=== PATIENT | male | born 1960 | race Caucasian/White ===

== ENCOUNTER → 2020-10-24 | Outpatient (CLI) | payer OTHER ==
[~2020-10-24] MED LIST: ALPR.5T PO; ANTI-INFLAMMATORY PO; CINN500C2 PO; CLC600T PO; CYCL10TA9 PO; DCS100C PO; DICL75TA2 PO; ENAL10TA PO; HCT25T PO; HYDR-34 PO; HYDR-3456 PO; HYDR-3583 PO; LOSA50TA63 PO; OMEG1CAP58 PO; PNT40TEC PO; POTA10TA36 PO; POTA99TA21 PO; TURM500C7 PO; UBID100C17 PO
--- NOTE | 2020-10-24 14:20 | Diagnostic Imaging Report ---
PROCEDURE: CT head without contrast. TECHNIQUE: Multiple contiguous axial images were obtained through the brain without the use of intravenous contrast. Auto Exposure Controls were utilized during the CT exam to meet ALARA standards for radiation dose reduction. INDICATION: Headache, sinus pressure, dizziness. COMPARISON: No relevant comparison. FINDINGS: The brain appeared normal. There is no hemorrhage, hydrocephalus, edema, mass, mass effect, or evidence for elevation of the intracranial pressures. The basilar cisterns are patent. There is no sulcal effacement. No mass or mass effect. No abnormal extra-axial fluid collection. Orbits, calvarium, mastoids, and visualized paranasal sinuses are nonacute. IMPRESSION: Unremarkable CT head. Dictated by: Dictated on workstation # [id number]
--- NOTE | 2020-10-24 14:21 | Diagnostic Imaging Report ---
PROCEDURE: CT sinuses without contrast TECHNIQUE: Multiple contiguous axial images were obtained through the sinuses without the use of intravenous contrast. Coronal and sagittal reformations were then performed. Auto Exposure Controls were utilized during the CT exam to meet ALARA standards for radiation dose reduction. INDICATION: Head pressure, dizziness. FINDINGS: There is very minimal 2 mm rightward directed nasal septal spurring without substantial deviation. The nasal bones are intact. The maxillary sinuses are clear. The maxillary sinus ostia patent. Ostiomeatal units and infundibulum appeared unremarkable. The ethmoid air cells are clear and well expanded. The sphenoid sinuses are clear. The frontal sinuses are clear. The orbital contents are unremarkable. There is no mastoid effusion. The external auditory canals and middle ear cavities appeared normal. IMPRESSION: Normal CT sinuses. Dictated by: Dictated on workstation # [id number]
== END ==
LOC: RAD 13:15
PROVIDERS: ATTEND Physician Assistant
DX: J01.41 Acute recurrent pansinusitis (principal); R42 Dizziness and giddiness; R53.1 Weakness
CPT/HCPCS: 70450; 70486

== ENCOUNTER → 2021-07-18 | Outpatient (CLI) | payer OTHER ==
[~2021-07-18] MED LIST changes: +CALC600T91 PO; -CLC600T PO
== END ==
LOC: CARD 09:00
PROVIDERS: ATTEND Internal Medicine Cardiovascular Disease
DX: I51.7 Cardiomegaly (principal); Z86.16 Personal history of COVID-19
CPT/HCPCS: 93306

== ENCOUNTER → 2021-07-29 | Outpatient (CLI) | payer OTHER ==
[~2021-07-29] MED LIST changes: +CATHETER FLUSH 10 ML SYR IV PRN; +REGADENOSON 0.4 MG/5 ML SYR (LEXISCAN) IV ONE
[2021-07-29 09:00] VITALS: BP 181/103
[2021-07-29 09:12] VITALS: BP 191/107
[2021-07-29 09:14] VITALS: BP 187/107
--- NOTE | 2021-07-29 17:37 | STRESS TEST ---
DATE OF SERVICE: 07/29/2021 RESTING AND POST REGADENOSON TECHNETIUM-99M TETROFOSMIN SPECT CT IMAGING Baseline images were carried out after injection of 10.71 mCi of technetium-99m Tetrofosmin. This was followed by 0.4 mg Regadenoson and 32.4 mCi of technetium-99 Tetrofosmin for stress imaging. The electrocardiogram showed a sinus rhythm at baseline. There was nonspecific ST and T-wave abnormality in the lateral leads. The electrocardiogram did not change significantly with the Regadenoson infusion. Review of images at rest and following stress indicates a small basal inferolateral perfusion defect that appears transient. Gated images show a normal global left ventricular systolic function with normal regional wall motion. Left ventricular ejection fraction is calculated to be 74%. Left ventricular end diastolic volume is 77 mL. TID is absent (1.16). CONCLUSIONS: 1. This study is indicative of a small amount of basal inferolateral ischemia. 2. Normal regional wall motion. 3. Normal global left ventricular systolic function with a calculated ejection fraction of 74%. Job ID: [id number] DocumentID: [id number] Dictated Date: 07/29/2021 14:54:49 [employer] Date: 07/29/2021 17:36:50 Dictated By: CHAYA LARA MD, MA, FACP, FACC,
== END ==
LOC: CARD 07:55
PROVIDERS: ATTEND Nurse Practitioner Family
DX: R07.89 Other chest pain (principal)
CPT/HCPCS: 78452; 93017; A9502

== ENCOUNTER 2021-08-19 08:52 | Day surgery (SDC) | payer OTHER ==
[~2021-08-19] VITALS: Ht 185 cm; Wt 135.0 kg
[2021-08-19] VITALS (16 sets, daily range): BP systolic 153–208; BP diastolic 81–114
[~2021-08-19 08:52] MED LIST changes: -CATHETER FLUSH 10 ML SYR IV PRN; -REGADENOSON 0.4 MG/5 ML SYR (LEXISCAN) IV ONE
[2021-08-19] MEDS ORDERED: NS IV 1000 ML 1,000 ML ONE (09:05)
[2021-08-19] MEDS ORDERED: HEParin (CATH LAB) 2,000 ML IV ONE (09:05)
[2021-08-19] MEDS ORDERED: LIDOCAINE 1% INJ 20 ML 20 ML VIAL ONE ×2 (09:05→12:00)
[2021-08-19] MEDS: NS IV 1000 ML 1,000 ML IV SCH ×3 (09:36→23:36)
[2021-08-19 09:39] LABS: HEMATOCRIT 43 % (40-54); HEMOGLOBIN 15.1 g/dL (13.3-17.7); MEAN CORPUSCULAR HEMOGLOBIN 30 pg (25-34); MEAN CORPUSCULAR HGB CONC 35 g/dL (32-36); MEAN CORPUSCULAR VOLUME 86 fL (80-99); MEAN PLATELET VOLUME 9.1 fL (9.0-12.2); PLATELET COUNT 250 10^3/uL (130-400); WHITE BLOOD COUNT 9.3 10^3/uL (4.3-11.0)
[2021-08-19 09:47] LABS: PROTHROMBIN TIME PATIENT 13.8 SEC (12.2-14.7)
[2021-08-19 09:55] LABS: ALBUMIN 3.9 GM/DL (3.2-4.5); BILIRUBIN,TOTAL 0.6 MG/DL (0.1-1.0); CALCIUM 9.1 MG/DL (8.5-10.1); CREATININE SERUM 0.92 MG/DL (0.60-1.30); POTASSIUM 3.9 MMOL/L (3.6-5.0); TOTAL PROTEIN 6.8 GM/DL (6.4-8.2)
[2021-08-19] MEDS ORDERED: METO50TA7 PO (10:23)
[2021-08-19] MEDS ORDERED: ASPI-999 PO (10:23)
[2021-08-19] MEDS ORDERED: ASCO500C17 PO (10:23)
[2021-08-19] MEDS ORDERED: ZINC50TA11 PO (10:23)
[2021-08-19] MEDS ORDERED: VITA-246 PO (10:23)
[2021-08-19] MEDS ORDERED: CYCL10TA9 PO (10:23)
[2021-08-19] MEDS ORDERED: LOSA50TA63 PO (10:23)
[2021-08-19] MEDS ORDERED: FEXO-46 PO (10:23)
[2021-08-19] MEDS ORDERED: METF-478 PO (10:23)
[2021-08-19] MEDS ORDERED: ALPR0.5T7 PO (10:23)
[2021-08-19] MEDS ORDERED: MULT-1136 PO (10:23)
[2021-08-19] MEDS ORDERED: RT-ALBUINH IH (10:23)
[2021-08-19] MEDS ORDERED: ACHD5005 PO (10:23)
[2021-08-19] MEDS ORDERED: MIDAZOLAM 5 MG/5 ML (VERSED) VIAL ONE ×2 (10:53→12:00)
[2021-08-19] MEDS ORDERED: fentaNYL INJ 100 MCG/2 ML AMP ONE ×2 (10:53→12:00)
[2021-08-19] MEDS ORDERED: HEParin 1000 UNIT/ML (10ML VIAL) FOR BOLUS ONE (12:01)
[2021-08-19] MEDS ORDERED: EPTIFIBATIDE BOLUS 20 ML IV ONE (12:03)
[2021-08-19] MEDS ORDERED: ASPIRIN 81 MG CHEW (CHILDREN'S ASA) ONE (12:36)
[2021-08-19] MEDS ORDERED: CLOPIDOGREL 300 MG (PLAVIX) TABLET PO ONE (12:36)
[2021-08-19] MEDS ORDERED: meTOproloL SUCCINATE 50 MG (TOPROL XL) TAB PO SCH (14:00)
[2021-08-19] MEDS ORDERED: ALPRAZolam 0.5 MG (XANAX) TAB PO PRN (14:15)
[2021-08-19] MEDS ORDERED: RT-ALBUTEROL SULF 2.5 MG/3 ML PRE-MIX VIAL IH PRN (14:15)
[2021-08-19] MEDS ORDERED: PATIENT MAY USE OWN MEDS, ALL PO SCH (14:15)
[2021-08-19] MEDS ORDERED: RX-CYCLOBENZAPRINE 10 MG (FLEXERIL) TAB PPK#3 PO PRN (14:15)
[2021-08-19] MEDS ORDERED: ACETAMINOPHEN 325 MG TABLET PO PRN (14:15)
--- NOTE | 2021-08-19 15:09 | CARDIAC CATHETERIZATION ---
DATE OF SERVICE: 08/19/2021 HEART CATHETERIZATION AND CORONARY INTERVENTION REPORT INDICATION FOR PROCEDURE The patient is a 60-year-old gentleman, who has multiple coronary artery disease risk factors and who has recently had an abnormal myocardial perfusion imaging study that indicated inferolateral ischemia. Accordingly, cardiac catheterization was carried out after having obtained an informed consent for cardiac catheterization and possible ad hoc coronary intervention. DESCRIPTION OF PROCEDURE: He was brought to the cardiac catheterization laboratory in a fasting state. Right groin was prepared and draped in the usual sterile fashion. Lidocaine 1% was used for local anesthesia. Modified Seldinger technique was used to advance a 5-Malawian sheath in the left femoral artery, 5-Malawian JL4 catheter was used for left coronary angiography. A 5-Malawian JR4 catheter was used for right coronary angiography, 5-Malawian pigtail catheter was used for left heart catheterization and left ventricular angiography. Subsequently, percutaneous intervention was carried out to the left circumflex artery and is described below. PERCUTANEOUS INTERVENTION TO THE LEFT CIRCUMFLEX ARTERY: We exchanged the sheath over a wire for a 6-Malawian sheath. We used a 6-Malawian JL4 guide catheter to engage the left coronary artery. We used a BMW wire to cross the lesion in the left circumflex artery and the tip was placed in the distal vessel. We then advanced a Machelle 2.5 x 12 mm stent to the lesion. This was carefully positioned to cover the lesion and the stent was deployed at 18 atmospheres. The stent extends across a small obtuse marginal branch, which remained intact and uncompromised. Following stent deployment, there was no significant residual stenosis in the left circumflex artery. The patient tolerated the procedure well. The angioplasty equipment was removed. Sheath was sutured in place for manual sheath removal on the floor. HEMODYNAMICS: Left ventricular end-diastolic pressure following coronary angiography was 11 mmHg. There was no significant pressure gradient on pullback across the aortic valve. Ascending aortic pressure was 130/80 with a mean of 70 mmHg. CORONARY ANGIOGRAPHY: Mild to moderate proximal coronary calcification is seen. Left main coronary artery does not exhibit significant disease. Left anterior descending artery has mild plaques. Left circumflex artery is codominant with the right coronary artery and has an 80% stenosis in its distal portion to which successful stenting was carried out and following deployment of 2.5 x 12 mm stent, there was no significant residual stenosis. The right coronary artery is codominant. It has mild plaque. LEFT VENTRICULAR ANGIOGRAPHY: Left ventricular angiography was carried out in the right anterior oblique projection. Global left ventricular systolic function is normal. Left ventricular ejection fraction is approximately 65%. CONCLUSIONS: 1. Coronary artery disease primarily consisting of an 80% distal stenosis in the left circumflex to which successful stenting was carried out with Machelle 2.5 x 12 mm stent with no significant residual stenosis. The rest of the coronary vessels have mild plaques. 2. Normal left ventricular end-diastolic pressure. 3. Normal global left ventricular systolic function with an ejection fraction of approximately 65%. DISCUSSION AND RECOMMENDATIONS: Dual antiplatelet therapy has been initiated. Beta rambo therapy is being continued. Statin therapy will be administered, if tolerated. He remains hospitalized for observation after this interventional procedure. Job ID: [id number] DocumentID: [id number] Dictated Date: 08/19/2021 12:38:17 Leaflet Distributor Date: 08/19/2021 15:09:02 Dictated By: CHAYA LARA MD, MA, FACP, FACC,
[2021-08-19] MEDS ORDERED: CYCLOBENZAPRINE 10 MG (FLEXERIL) TAB PO PRN (15:15)
[2021-08-19] MEDS ORDERED: LOSARTAN 50 MG (COZAAR) TAB PO SCH (18:00)
[2021-08-19] MEDS: HYDROcodone/APAP 5 MG/325 MG (LORTAB) TAB PO PRN (18:11)
[2021-08-19] MEDS: inSUlin ASPART (NovoLOG) 1 UNIT/0.01 ML (CHARGE PER UNIT) SC SCH ×2 (19:07→22:06)
[2021-08-19] MEDS ORDERED: NON-FORMULARY MEDICATION 1 EA EA (Fexofenadine HCl 180 MG) PO SCH (21:00)
[2021-08-19] MEDS ORDERED: LORATADINE (CLARITIN) 10 MG TAB PO SCH (21:00)
[2021-08-20] VITALS (8 sets, daily range): BP systolic 147–178; BP diastolic 76–113
[2021-08-20] MEDS: HYDROcodone/APAP 5 MG/325 MG (LORTAB) TAB PO PRN ×2 (00:25→09:34)
[2021-08-20] MEDS: NS IV 1000 ML 1,000 ML IV SCH ×2 (00:27→05:16)
[2021-08-20] MEDS ORDERED: LABETALOL HCL 20 MG/4 ML VIAL IV PRN (01:15)
[2021-08-20] MEDS: inSUlin ASPART (NovoLOG) 1 UNIT/0.01 ML (CHARGE PER UNIT) SC SCH ×2 (06:45→10:28)
[2021-08-20] MEDS ORDERED: MULTIVIT W/MINERALS TAB (THERAGRAN M) PO SCH (07:00)
[2021-08-20] MEDS ORDERED: ASCORBIC ACID (VIT C) 500 MG TABLET PO SCH (08:00)
[2021-08-20] MEDS ORDERED: ZINC SULFATE 220 MG CAPSULE PO SCH (08:00)
--- NOTE | 2021-08-20 08:12 | Progress Note - Cardiology ---
Cardiology SOAP Progress Note Objective: I&O/Vital Signs Weight (Pounds): 300 Weight (Ounces): 0.0 Weight (Calculated Kilograms): 136.026271 Results/Procedures: Labs Microbiology 08/19/21 MRSA Screen - Final, Complete MRSA not isolated A/P: Assessment: CAD - MPI of 07-29-21: This study is indicative of a small amount of basal inferolateral ischemia. Normal regional wall motion. Normal global left ventricular systolic function with a calculated ejection fraction of 74%. - Cardiac cath of 08-19-21: Coronary artery disease primarily consisting of an 80% distal stenosis in the left circumflex to which successful stenting was carried out with Machelle 2.5 x 12 mm stent with no significant residual stenosis. The rest of the coronary vessels have mild plaques. Normal left ventricular end -diastolic pressure. Normal global left ventricular systolic function with an ejection fraction of approximately 65%. Shortness of breath - Echocardiogram of 07-18-21 showed LVEF 60-65%. Grade 1 diastolic dysfunction. LA mod dilated Fatigue - undetermined etiology MIKE - CPAP tx HTN H/O COVID in April 2021 DM 2 - managed by PCP LU JONES Aug 20, 2021 08:12
[2021-08-20] MEDS ORDERED: CLOP75TA28 PO (08:14)
--- NOTE | 2021-08-20 08:15 | Discharge Inst-Cardiology ---
Discharge Inst-Cardiac Discharge Medications New Medications: Metoprolol Succinate (Toprol Xl) 100 Mg Tab.er.24h 100 MG PO DAILY, #90 TAB 3 Refills Clopidogrel Bisulfate (Clopidogrel) 75 Mg Tablet 75 MG PO DAILY, #90 TAB 3 Refills Continued Medications: Albuterol Sulfate (Proair Hfa) 1 Puff Puff 2 PUFF IH Q4 -6H PRN for SHORTNESS OF BREATH, EA Alprazolam (Alprazolam) 0.5 Mg Tablet 0.5 MG PO BID PRN for ANXIETY, TAB Ascorbic Acid (Vitamin C) 500 Mg Capsule 500 MG PO DAILY, CAP Aspirin (Aspirin) 81 Mg Tab.chew 81 MG PO DAILY, TAB Cyclobenzaprine HCl (Cyclobenzaprine HCl) 10 Mg Tablet 10 MG PO BID PRN for MUSCLE SPASMS, TAB Fexofenadine HCl (Fexofenadine HCl) 180 Mg Tablet 180 MG PO HS, TAB Hydrocodone/Acetaminophen (Hydrocodone-Acetamin 5-325 mg) 1 Each Tablet 1 TAB PO QID PRN for PAIN-MODERATE (5-7), TAB Losartan Potassium (Losartan Potassium) 50 Mg Tablet 50 MG PO Q12H, TAB Metformin HCl (Metformin HCl ER) 500 Mg Tab.er.24 500 MG PO BID WITH MEALS, TAB Multivitamin (Multivitamin) 1 Each Tablet 1 EACH PO DAILY, TAB Vitamin D3/Vitamin K2 (Mk4) (K2 Plus D3 Tablet) 1 Each Tablet 1 EACH PO DAILY, TAB Zinc Gluconate (Zinc) 50 Mg Tablet 50 MG PO DAILY, TAB Discontinued Medications: Metoprolol Succinate (Metoprolol Succinate) 50 Mg Tab.er.24h 50 MG PO 1400, TAB New, Converted or Re-Newed RX: Transmitted to Pharmacy Patient Instructions Patient Instructions: Please schedule follow up appointment to see Dr. Bone in 2 weeks HOLD Metformin until Wednesday, Aug 22, 2021; then resume previous dose LU JONES Aug 20, 2021 08:15
[2021-08-20] MEDS ORDERED: [UNRECOGNIZED DRUG - OTHER] PO SCH (09:00)
[2021-08-20] MEDS ORDERED: ASPIRIN 81 MG CHEW (CHILDREN'S ASA) PO SCH (09:00)
[2021-08-20] MEDS ORDERED: NON-FORMULARY MEDICATION 1 EA EA (Multivitamin 1 EACH) PO SCH (09:00)
[2021-08-20] MEDS ORDERED: CLOPIDOGREL 75 MG (PLAVIX) TABLET PO SCH (09:00)
[2021-08-20] MEDS ORDERED: VITAMIN K2 PO SCH (09:00)
[2021-08-20] MEDS ORDERED: ZINC GLUCONATE 50 MG PO SCH (09:00)
[2021-08-20] MEDS ORDERED: NON-FORMULARY MEDICATION 1 EA EA (Ascorbic Acid (Vitamin C) 500 MG) PO SCH (09:00)
[2021-08-20] MEDS ORDERED: LOSARTAN 50 MG (COZAAR) TAB PO SCH (09:00)
[2021-08-20] MEDS ORDERED: VITAMIN D3 PO SCH (09:00)
[2021-08-20] MEDS ORDERED: METO100T6 PO (09:10)
[2021-08-20] MEDS ORDERED: meTOprolol SUCCINATE 100 MG (TOPROL XL) TAB PO ONE (09:15)
--- NOTE | 2021-08-20 11:17 | Progress Note - Cardiology ---
Cardiology SOAP Progress Note Subjective: No cp or palp or syncope or shortness of breath or groin or leg discomfort No n/v/d Objective: I&O/Vital Signs 08/19/21 08/20/21 08/20/21 08/20/21 23:25 00:00 01:00 01:00 Pulse 76 80 92 B/P (MAP) 170/98 (122) 178/113 (134) Pulse Ox 97 95 O2 Delivery Nasal Cannula Nasal Cannula Nasal Cannula O2 Flow Rate 2.00 2.00 2.00 08/20/21 08/20/21 08/20/21 08/20/21 02:00 03:00 03:25 04:00 Pulse 80 80 77 Resp 19 20 17 B/P (MAP) 157/88 (111) 151/88 (109) 154/90 (111) Pulse Ox 97 93 94 O2 Delivery Nasal Cannula Nasal Cannula Nasal Cannula Nasal Cannula O2 Flow Rate 2.00 3.00 2.00 3.00 08/20/21 08/20/21 08/20/21 08/20/21 05:00 06:00 06:00 07:00 Pulse 75 72 73 Resp 17 19 B/P (MAP) 155/96 (115) 147/76 (99) Pulse Ox 96 95 O2 Delivery Nasal Cannula Nasal Cannula NIV CPAP O2 Flow Rate 3.00 3.00 4.00 08/20/21 08/20/21 08/20/21 07:25 07:39 08:00 Temp 35.3 Pulse 70 Resp 22 B/P (MAP) 151/88 (109) Pulse Ox 94 O2 Delivery Room Air Nasal Cannula O2 Flow Rate 3.00 08/20/21 00:00 Intake Total 600 ml Output Total 50 ml Balance 550 ml Weight (Pounds): 300 Weight (Ounces): 0.0 Weight (Calculated Kilograms): 136.164500 Condition: DP/PT pulses palpable Bruising: mild bruising Constitutional: AAO x 3, well-developed, well-nourished Respiratory: No accessory muscle use; other (good, bilateral air entry) Cardiovascular: regular rate-rhythm, S1 and S2, systolic murmur (soft AMPARO at card base) Gastrointestional: No tender; soft; No guarding, No rebound; audible bowel sounds Extremities: No clubbing, No cyanosis, No significant edema Neurologic/Psychiatric: oriented x 3, other (moves all limbs equally) Skin: No rash on exposed areas, No ulcerations on exposed areas Results/Procedures: Labs Laboratory Tests 08/19/21 18:34: Glucometer 175H 08/19/21 21:13: Glucometer 208H 08/20/21 09:56: Glucometer 188H Microbiology 08/19/21 MRSA Screen - Final, Complete MRSA not isolated Laboratory Tests 08/19/21 09:25 A/P: Assessment: CAD - MPI of 07-29-21: This study is indicative of a small amount of basal inferolat eral ischemia. Normal regional wall motion. Normal global left ventricular systolic function with a calculated ejection fraction of 74%. - Cardiac cath of 08-19-21: Coronary artery disease primarily consisting of an 80% distal stenosis in the left circumflex to which successful stenting was carried out with Machelle 2.5 x 12 mm stent with no significant residual stenosis. The rest of the coronary vessels have mild plaques. Normal left ventricular end-diastolic pressure. Normal global left ventricular systolic function with an ejection fraction of approximately 65%. Shortness of breath - Echocardiogram of 07-18-21 showed LVEF 60-65%. Grade 1 diastolic dysfunction. LA mod dilated Fatigue - undetermined etiology MIKE - CPAP tx HTN H/O COVID in April 2021 DM 2 - managed by PCP Plan: * I spoke with him in detail regarding his CV issues, cath findings, and interventions undertaken. Questions answered * Risk factor mod reviewed * Beta-rambo increased for better control * Advised compliance with med, especially with ASA and Plavix * Outpt f/u advised CHAYA LARA MD FACP [facility] Aug 20, 2021 11:17
--- NOTE | 2021-08-20 11:18 | Cardiology Discharge Summary ---
Diagnosis/Chief Complaint Date of Admission 08-19-21 Date of Discharge 08-20-21 Final/Discharge Diagnosis CAD - MPI of 07-29-21: This study is indicative of a small amount of basal inferolateral ischemia. Normal regional wall motion. Normal global left ventricular systolic function with a calculated ejection fraction of 74%. - Cardiac cath of 08-19-21: Coronary artery disease primarily consisting of an 80% distal stenosis in the left circumflex to which successful stenting was carried out with Machelle 2.5 x 12 mm stent with no significant residual stenosis. The rest of the coronary vessels have mild plaques. Normal left ventricular end-diastolic pressure. Normal global left ventricular systolic function with an ejection fraction of approximately 65%. Shortness of breath - Echocardiogram of 07-18-21 showed LVEF 60-65%. Grade 1 diastolic dysfunction. LA mod dilated Fatigue - undetermined etiology MIKE - CPAP tx HTN H/O COVID in April 2021 DM 2 - managed by PCP Chief Complaint/HPI Chief Complaint/HPI Please refer to our progress note of today's date for condition at discharge Discharge Summary Hospital Course Pending Labs Laboratory Tests 08/20/21 09:56: Glucometer 188 Discussion & Recommendations Home Medications Reviewed patient Home Medication Reconciliation performed by pharmacy medication reconciliations light technician and/or nursing. Patients Allergies have been reviewed. Discharge Home Medications: Reviewed and agree with Discharge Medication list on patient's Discharge Instru ction sheet CHAYA LARA MD FACP [facility]AC [facility] Aug 20, 2021 11:18
[2021-08-21] MEDS ORDERED: meTOprolol SUCCINATE 100 MG (TOPROL XL) TAB PO SCH (09:00)
== END 2021-08-20 13:33 | disposition home or self-care (01) ==
LOC: CATH 08:52 → ICU 11:37 → CATH 08-20 13:33
PROVIDERS: ATTEND Internal Medicine Cardiovascular Disease
DX: I25.10 Atherosclerotic heart disease of native coronary artery without angina pectoris (principal); G47.33 Obstructive sleep apnea (adult) (pediatric); E11.9 Type 2 diabetes mellitus without complications; E78.2 Mixed hyperlipidemia; Z79.899 Other long term (current) drug therapy; Z79.82 Long term (current) use of aspirin; Z79.891 Long term (current) use of opiate analgesic; Z79.84 Long term (current) use of oral hypoglycemic drugs; Z86.16 Personal history of COVID-19
CPT/HCPCS: 80053; 80061; 82947 ×2; 85027; 85610; 85730; 87081; 93458; C1769; C1874; C1887; C1894 ×2; C9600; 36415

== ENCOUNTER 2021-08-28 15:32 | Observation (INO) | payer OTHER ==
[~2021-08-28] VITALS: Ht 185.4 cm; Wt 131.5 kg
[~2021-08-28 15:32] MED LIST changes: -CYCL10TA25 PO; +POTA99TA21 PO; -POTA99TA26 PO
[2021-08-28 16:22] LABS: BASOPHILS # (AUTO) 0.1 10^3/uL (0.0-0.1); BASOPHILS % (AUTO) 2 % (0-10); EOSINOPHILS # (AUTO) 0.6 10^3/uL (0.0-0.3); EOSINOPHILS % (AUTO) 7 % (0-10); HEMATOCRIT 43 % (40-54); HEMOGLOBIN 14.9 g/dL (13.3-17.7); LYMPHOCYTES # (AUTO) 2.3 10^3/uL (1.0-4.0); LYMPHOCYTES % (AUTO) 30 % (12-44); MEAN CORPUSCULAR HEMOGLOBIN 30 pg (25-34); MEAN CORPUSCULAR HGB CONC 35 g/dL (32-36); MEAN CORPUSCULAR VOLUME 86 fL (80-99); MEAN PLATELET VOLUME 8.7 fL (9.0-12.2); MONOCYTES # (AUTO) 0.6 10^3/uL (0.0-1.0); MONOCYTES % (AUTO) 8 % (0-12); NEUTROPHILS # (AUTO) 4.1 10^3/uL (1.8-7.8); NEUTROPHILS % (AUTO) 53 % (42-75); PLATELET COUNT 320 10^3/uL (130-400); WHITE BLOOD COUNT 7.8 10^3/uL (4.3-11.0)
[2021-08-28 16:30] LABS: POTASSIUM 4.4 MMOL/L (3.6-5.0)
[2021-08-28 16:31] LABS: CALCIUM 9.7 MG/DL (8.5-10.1)
[2021-08-28 16:32] LABS: TOTAL PROTEIN 6.9 GM/DL (6.4-8.2)
[2021-08-28 16:34] LABS: BILIRUBIN,TOTAL 0.6 MG/DL (0.1-1.0)
[2021-08-28 16:36] LABS: CREATININE SERUM 0.98 MG/DL (0.60-1.30)
[2021-08-28 16:38] LABS: MAGNESIUM 1.5 MG/DL (1.6-2.4)
[2021-08-28 16:41] LABS: INR 1.1 (0.8-1.4); PROTHROMBIN TIME PATIENT 14.1 SEC (12.2-14.7)
[2021-08-28 17:16] LABS: BILIRUBIN,URINE NEGATIVE (NEGATIVE); CLARITY,URINE CLEAR; COLOR,URINE YELLOW; GLUCOSE, URINE (UA) TRACE (NEGATIVE); KETONES,URINE NEGATIVE (NEGATIVE); LEUKOCYTE ESTERASE ,URINE NEGATIVE (NEGATIVE); NITRITE,URINE NEGATIVE (NEGATIVE); PROTEIN,URINE TRACE (NEGATIVE)
[2021-08-28 17:49] LABS: AMORPHOUS SEDIMENT,UR RARE AMOR URATES /LPF; BACTERIA,URINE NEGATIVE /HPF
--- NOTE | 2021-08-28 18:48 | ED General ---
General Chief Complaint: General Problems/Pain Stated Complaint: SOB,WEAKNESS, Nursing Triage Note: PT TO ROOM 7 PER W/C PT STATES HAS EXTREME WEAKNESS TODAY, HAD STENT PLACEMENT LAST WEDNESDAY. PT STATES HAS NO ENERGY. PT STATES HAS HAD INTERMITTENT C/P FOR MONTHS SINCE HAVING COVID. PT WAS SENT TO ED BY DR BONE'S OFFICE Source of Information: Patient, Old Records Exam Limitations: No Limitations (GLENYS MARQUEZ MD) History of Present Illness Date Seen by Provider: Aug 28, 2021 Time Seen by Provider: 15:35 Initial Comments This 60-year-old gentleman presents to the emergency room with complaints of extreme fatigue, chest discomfort, and shortness of air. He reports feeling ill and having persistent chest pain since being diagnosed with COVID-19 4 months ago. He describes himself as a "long-hauler". He had cardiac catheterization with Dr. Bone about a week ago and has continued to have chest pain since then. There was a stent placement during the angiography. Today he went to the store and was becoming very weak and tired. He was experiencing increasing shortness of breath as well. He went to his pulmonology appointment and had a chest x-ray performed. His symptoms were rather severe at that time and he presented to the ER. The chest x-ray performed earlier today showed a density over the spine of uncertain etiology. Follow-up CT was recommended. (GLENYS MARQUEZ MD) Allergies and Home Medications Allergies Coded Allergies: Iazcqlx-Rbd-Uvt Reductase Inhibitor (Verified Allergy, Unknown, caused liver issues, 03/13/16) fluticasone (Unverified Allergy, Unknown, 08/08/15) Uncoded Allergies: PCN (Allergy, Unknown, 02/06/13) Patient Home Medication List Home Medication List Reviewed: Yes (GLENYS MARQUEZ MD) Home Medication List Reviewed: Yes (BANDAR KENT) Albuterol Sulfate (Proair Hfa) 1 Puff Puff, 2 PUFF IH Q4 -6H PRN for SHORTNESS OF BREATH, (Reported) Entered as Reported by: UMAIR ESPINOSA on 08/19/21 1023 Alprazolam (Alprazolam) 0.5 Mg Tablet, 0.5 MG PO BID PRN for ANXIETY, (Reported) Entered as Reported by: UMAIR ESPINOSA on 08/19/21 1023 Ascorbic Acid (Vitamin C) 500 Mg Capsule, 500 MG PO DAILY, (Reported) Entered as Reported by: UMAIR ESPINOSA on 08/19/21 1023 Aspirin (Aspirin) 81 Mg Tab.chew, 81 MG PO DAILY, (Reported) Entered as Reported by: UMAIR ESPINOSA on 08/19/21 1023 Clopidogrel Bisulfate (Clopidogrel) 75 Mg Tablet, 75 MG PO DAILY Prescribed by: LU JONES on 08/20/21 0814 Cyclobenzaprine HCl (Cyclobenzaprine HCl) 10 Mg Tablet, 10 MG PO BID PRN for MUSCLE SPASMS, (Reported) Entered as Reported by: UMAIR ESPINOSA on 08/19/21 1023 Fexofenadine HCl (Fexofenadine HCl) 180 Mg Tablet, 180 MG PO HS, (Reported) Entered as Reported by: UMAIR ESPINOSA on 08/19/21 1023 Hydrocodone/Acetaminophen (Hydrocodone-Acetamin 5-325 mg) 1 Each Tablet, 1 TAB PO QID PRN for PAIN-MODERATE (5-7), (Reported) Entered as Reported by: UMAIR ESPINOSA on 08/19/21 1023 Losartan Potassium (Losartan Potassium) 50 Mg Tablet, 50 MG PO Q12H, (Reported) Entered as Reported by: UMAIR ESPINOSA on 08/19/21 1023 Metformin HCl (Metformin HCl ER) 500 Mg Tab.er.24, 500 MG PO BID WITH MEALS, (Reported) Entered as Reported by: UMAIR ESPINOSA on 08/19/21 1023 Metoprolol Succinate (Toprol Xl) 100 Mg Tab.er.24h, 100 MG PO DAILY Prescribed by: LU JONES on 08/20/21 0910 Multivitamin (Multivitamin) 1 Each Tablet, 1 EACH PO DAILY, (Reported) Entered as Reported by: UMAIR ESPINOSA on 08/19/21 1023 Vitamin D3/Vitamin K2 (Mk4) (K2 Plus D3 Tablet) 1 Each Tablet, 1 EACH PO DAILY, (Reported) Entered as Reported by: UMAIR ESPINOSA on 08/19/21 1023 Zinc Gluconate (Zinc) 50 Mg Tablet, 50 MG PO DAILY, (Reported) Entered as Reported by: UMAIR ESPINOSA on 08/19/21 1023 Review of Systems Review of Systems Constitutional: see HPI EENTM: no symptoms reported Respiratory: see HPI Cardiovascular: see HPI Gastrointestinal: no symptoms reported Genitourinary: no symptoms reported Musculoskeletal: no symptoms reported Skin: no symptoms reported Psychiatric/Neurological: No Symptoms Reported Hematologic/Lymphatic: No Symptoms Reported Immunological/Allergic: no symptoms reported (GLENYS MARQUEZ MD) Past Klrrswd-Dwyydk-Vrknbt Hx Patient Social History Tobacco Use?: No Substance use?: No Alcohol Use?: No Pt feels they are or have been: No (GLENYS MARQUEZ MD) Immunizations Up To Date Tetanus Booster (TDap): More than 5yrs (GLENYS MARQUEZ MD) Past Medical History Surgeries: Yes Abdominal (Polypectomy), Adenoidectomy, Coronary Stent Respiratory: Yes (COVID-19) Sleep Apnea Currently Using CPAP: Yes Cardiac: Yes Coronary Artery Disease, Hypertension Neurological: No Reproductive Disorders: No Sexually Transmitted Disease: No Genitourinary: No Gastrointestinal: Yes Chronic Constipation Musculoskeletal: Yes Chronic Back Pain HEENT: No Cancer: Yes Skin, 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 0.0oz. 136.446754yg; 38.00 BMI Method:Stated General Appearance: WD/WN, Mild Distress, Obese HEENT: PERRL/EOMI, Normal ENT Inspection Neck: Normal Inspection; No JVD Respiratory: Lungs Clear, Normal Breath Sounds, No Accessory Muscle Use Cardiovascular: Regular Rate, Rhythm, No Edema, No Murmur Gastrointestinal: Non Tender, Soft; No Distended Extremity: Normal Inspection, Non Tender, No Calf Tenderness Neurologic/Psychiatric: Alert, Oriented x3, No Motor/Sensory Deficits, residential therapist II- XII Norm as Tested, Other (Mildly anxious) Skin: Normal Color, Warm/Dry (GLENYS MARQUEZ MD) Progress/Results/Core Measures Suspected Sepsis SIRS Temperature: Pulse: 70 Respiratory Rate: 18 Laboratory Tests 08/28/21 16:10: White Blood Count 7.8 Blood Pressure 177 /93 Mean: 121 Laboratory Tests 08/28/21 16:10: Creatinine 0.98, INR Comment 1.1, Platelet Count 320, Total Bilirubin 0.6 (GLENYS MARQUEZ MD) Results/Orders Lab Results Laboratory Tests Test 08/28/21 15:40 08/28/21 16:10 08/28/21 17:04 08/28/21 18:22 Range/Units Glucometer 191 H 70-110 MG/DL White Blood Count 7.8 4.3-11.0 10^3/uL Red Blood Count 4.92 4.30-5.52 10^6/uL Hemoglobin 14.9 13.3-17.7 g/dL Hematocrit 43 40-54 % Mean Corpuscular Volume 86 80-99 fL Mean Corpuscular Hemoglobin 30 25-34 pg Mean Corpuscular Hemoglobin Concent 35 32-36 g/dL Red Cell Distribution Width 12.7 10.0-14.5 % Platelet Count 320 130-400 10^3/uL Mean Platelet Volume 8.7 L 9.0-12.2 fL Immature Granulocyte % (Auto) 0 % Neutrophils (%) (Auto) 53 42-75 % Lymphocytes (%) (Auto) 30 12-44 % Monocytes (%) (Auto) 8 0-12 % Eosinophils (%) (Auto) 7 0-10 % Basophils (%) (Auto) 2 0-10 % Neutrophils # (Auto) 4.1 1.8-7.8 10^3/uL Lymphocytes # (Auto) 2.3 1.0-4.0 10^3/uL Monocytes # (Auto) 0.6 0.0-1.0 10^3/uL Eosinophils # (Auto) 0.6 H 0.0-0.3 10^3/uL Basophils # (Auto) 0.1 0.0-0.1 10^3/uL Immature Granulocyte # (Auto) 0.0 0.0-0.1 10^3/uL Prothrombin Time 14.1 12.2-14.7 SEC INR Comment 1.1 0.8-1.4 Activated Partial Thromboplast Time 28 24-35 SEC D-Dimer 0.45 0.00-0.49 UG/ML Sodium Level 137 135-145 MMOL/L Potassium Level 4.4 3.6-5.0 MMOL/L Chloride Level 104 98-107 MMOL/L Carbon Dioxide Level 21 21-32 MMOL/L Anion Gap 12 5-14 MMOL/L Blood Urea Nitrogen 15 7-18 MG/DL Creatinine 0.98 0.60-1.30 MG/DL Estimat Glomerular Filtration Rate 78 BUN/Creatinine Ratio 15 Glucose Level 204 H 70-105 MG/DL Calcium Level 9.7 8.5-10.1 MG/DL Corrected Calcium 9.7 8.5-10.1 MG/DL Magnesium Level 1.5 L 1.6-2.4 MG/DL Total Bilirubin 0.6 0.1-1.0 MG/DL Aspartate Amino Transf (AST/SGOT) 76 H 5-34 U/L Alanine Aminotransferase (ALT/SGPT) 45 0-55 U/L Alkaline Phosphatase 60 40-136 U/L Myoglobin 62.3 10.0-92.0 NG/ML Troponin I 0.107 H < 0.028 <0.028 NG/ML B-Type Natriuretic Peptide 19.7 <100.0 PG/ML Total Protein 6.9 6.4-8.2 GM/DL Albumin 4.0 3.2-4.5 GM/DL TSH Henry Testing 1.77 0.35-4.94 UIU/ML Urine Color YELLOW Urine Clarity CLEAR Urine pH 6.0 5-9 Urine Specific Taylors 1.025 H 1.016-1.022 Urine Protein TRACE H NEGATIVE Urine Glucose (UA) TRACE H NEGATIVE Urine Ketones NEGATIVE NEGATIVE Urine Nitrite NEGATIVE NEGATIVE Urine Bilirubin NEGATIVE NEGATIVE Urine Urobilinogen 0.2 < = 1.0 MG/DL Urine Leukocyte Esterase NEGATIVE NEGATIVE Urine RBC (Auto) NEGATIVE NEGATIVE Urine RBC NONE /HPF Urine WBC NONE /HPF Urine Crystals PRESENT H /LPF Urine Amorphous Sediment RARE ALESHA URATES H /LPF Urine Bacteria NEGATIVE /HPF Urine Casts NONE /LPF Urine Mucus NEGATIVE /LPF Urine Culture Indicated NO Test 08/28/21 19:32 Range/Units Troponin I < 0.028 <0.028 NG/ML (BANDAR KENT) Medications Given in ED Current Medications Medications Dose Ordered Sig/Eulalio Route Start Time Stop Time Status Last Admin Dose Admin Iohexol 100 ml ONCE ONCE IV 08/28/21 19:15 08/28/21 19:16 DC 08/28/21 19:41 100 ML Magnesium Sulfate/ Dextrose 100 ml @ 100 mls/hr ONCE ONCE IV 08/28/21 19:15 08/28/21 20:14 DC 08/28/21 19:51 100 MLS/HR Sodium Chloride 100 ml ONCE ONCE IV 08/28/21 19:15 08/28/21 19:16 DC 08/28/21 19:41 80 ML (BANDAR KENT) Vital Signs/I&O 08/28/21 15:37 Temp 36.7 Pulse 70 Resp 18 B/P (MAP) 177/93 (121) Pulse Ox 98 (BANDAR KENT J) Vital Signs/I&O Capillary Refill : Less Than 3 Seconds (GLENYS MARQUEZ MD) Blood Pressure Mean: 121 Progress Note : Time: 19:33 Progress Note Initial work-up was relatively unremarkable except for a slight elevation in troponin. This was repeated 2 hours later and was normal. That trend does not seem to be consistent with expectations for troponin trending. This was discussed with Dr. Leary. He and I agree that there is potential for one of these troponin values to be an error. We are going to repeat a troponin draw to clarify the picture. Patient is feeling much improved at this time. We have discussed the abnormal chest x-ray. Given his history of polyp resection in 2014 and strong family history of colon cancer along with the abnormal chest x- ray, CT of the chest, abdomen and pelvis seems appropriate. This was discussed with the patient and offered. He would like to proceed with CT. Dr. Leary also agrees with this plan. Patient states that his polyp was cancer. However, the only pathology report found in the chart notes a tubulovillous adenoma. Patient also reports he has had a history of some type of skin cancer. (GLENYS MARQUEZ MD) Progress Note : Time: 20:56 Progress Note Discussed the findings and need for follow-up with the patient and he is in agreement with the follow-up plan however he does not feel that he is well enough to drive home to [place] over an hour away. He says he would feel more comfortable being close so we have discussed with the team about doing observation to keep him on the monitor and repeat a troponin in the morning and they are okay with this. He is not presently having chest pain but does get short of breath even with exertion of sitting up in bed. (BANDAR KENT) ECG Initial ECG Impression Date: Aug 28, 2021 Initial ECG Impression Time: 15:57 Initial ECG Rate: 67 Initial ECG Rhythm: Normal Sinus Initial ECG Intervals: Normal Initial ECG Impression: Normal Comment Normal sinus rhythm with no ST elevation or depression. No abnormal intervals or axis deviation. Similar to prior. (GLENYS MARQUEZ MD) Diagnostic Imaging Diagonstic Imaging: Xray Plain Films/CT/US/NM/MRI: chest Comments Report from chest x-ray performed earlier today reviewed. See report below: NAME: LISA [facility]UNTER [facility] REC#: [id number] PT STATUS: PRE CLI : 1960 PHYSICIAN: JAZMYN CALLEJAS APRN ADMIT DATE: 08/28/21/RT Signed Date of Exam:08/28/21 CHEST PA/LAT (2 VIEW) INDICATION: Dyspnea. Stent placement last week. Side effects from COVID. EXAMINATION: Two-view chest from 08/28/2021. FINDINGS: There is a nonspecific density superimposed upon the [id number] thoracic spine. This could represent endplate changes versus a nodule in the underlying lung. It is not seen on the frontal view. The remaining lungs are clear. No infiltrates or effusions. No pneumothorax. Heart and pulmonary vasculature are normal. There is no acute osseous abnormality. IMPRESSION: 1. Density superimposed upon the spine, nonspecific in nature. Nonemergent CT imaging could further evaluate and exclude a lung nodule. Dictated by: Dictated on workstation # [id number] Dict: 08/28/21 1350 Trans: 08/28/21 1519 [id number] Interpreted by: ARNALDO DURHAM MD Electronically signed by: ARNALDO DURHAM MD 08/28/21 9983 (GLENYS MARQUEZ MD) Diagonstic Imaging: CT Plain Films/CT/US/NM/MRI: chest, abdomen, pelvis Comments [facility] [place], [place] NAME: LISA HUNTER [facility] REC#: [id number] PT STATUS: REG ER : 1960 PHYSICIAN: GLENYS MARQUEZ MD ADMIT DATE: 08/28/21/ER Draft Date of Exam:08/28/21 CT CHEST/ABDOMEN/PELVIS W PROCEDURE: CT chest, abdomen, and pelvis with contrast. TECHNIQUE: Multiple contiguous axial images were obtained through the chest, abdomen, and pelvis after the administration of intravenous contrast. Auto Exposure Controls were utilized during the CT exam to meet ALARA standards for radiation dose reduction. INDICATION: Chest pain. Abnormal chest radiograph. COMPARISON: Chest radiograph from earlier the same day. FINDINGS: CT CHEST: Heart size is within normal limits. There is moderate calcified coronary atherosclerosis. There is no large pericardial effusion. Borderline prominent right paratracheal lymph node measures 1.9 x 0.9 cm. No abnormal mediastinal, hilar or axillary adenopathy is seen on either side. Lungs are clear. There is no focal consolidation, large effusion or pneumothorax. No suspicious pulmonary nodule or mass is seen. Osseous structures show no acute abnormality. CT ABDOMEN: There are a few scattered colonic diverticula, but no CT evidence of acute diverticulitis. Normal appendix cannot be adequately identified, but there is no pericecal inflammation. Small bowel loops are nondistended. The kidneys, adrenal glands, spleen, pancreas and liver have a normal CT appearance. There is no loculated fluid collection, free fluid or free air within the abdomen. No abnormal mesenteric or retroperitoneal adenopathy is seen. Osseous structures show no acute abnormality. CT PELVIS: There appears to be patent pseudoaneurysm arising from the proximal left superficial femoral artery. It measures 1.5 cm in diameter. There is mild stranding of the surrounding subcutaneous fat. Urinary bladder is grossly unremarkable. There is no loculated fluid collection, free fluid or free air within the pelvis. No abnormal adenopathy is seen. Osseous structures show no acute abnormality. IMPRESSION: 1. No acute abnormality seen within the chest, abdomen or pelvis. 2. Probable patent pseudoaneurysm in the left inguinal region. Correlation with recent arterial access is recommended. This could be further assessed with focused Doppler evaluation. 3. Borderline prominent paratracheal lymph node of uncertain significance or etiology. This could be followed to ensure stability. Dictated on workstation # [id number] Dict: 08/28/211949 Trans: 08/28/212011 [facility] [id number] Interpreted by: PARAMJIT MITCHELL MD Electronically signed by: Reviewed: Reviewed by Me (BANDAR KENT) Consults Consults : Consulting Physician: NIKOLAS LEARY MD Consults Notes Discussed the third repeat troponin and CT findings and these are expected findings. He can follow-up in the next week or [address] Bone and do an office ultrasound for the pseudoaneurysm if necessary. (BANDAR KENT) Departure Communication (Admissions) Time/Spoke to Admitting Phy: 21:00 Discussed the case with Dr. Joshi and she is okay with observing patient with consult cardiology Time/Spoke to Consulting Phy: 21:00 Discussed the case with Dr. Leary and he is okay with consulting. (BANDAR KENT) Impression Primary Impression: Chest pain in adult Additional Impressions: Lymph node enlargement Femoral artery pseudo-aneurysm, left ACS (acute coronary syndrome) Disposition: 01 HOME, SELF-CARE Condition: Stable Admissions Decision to Admit Reason: Admit from ER (General) Decision to Admit/Date: Aug 28, 2021 Time/Decision to Admit Time: 21:00 (BANDAR KENT) Departure-Patient Inst. Referrals: [facility] (PCP) Primary Care Physician MAXIMILIAN RICHARDSON (Family) Primary Care Physician CHAYA BONE MD [facility] Patient Instructions: Chest Pain (DC) Add. Discharge Instructions: You have a lymph node near the trachea that has a slight prominence that will need watched. Talk to your primary care doctor about repeat imaging in the next few months. Call your insulation foreman for follow up next week. Promptly return to the nearest ER for crushing chest pain or shortness of air. All discharge instructions reviewed with patient and/or family. Voiced understanding. Copy Copies To 1: JUVENAL JEAN DO; CHAYA BONE MD [facility] GLENYS MARQUEZ MD Aug 28, 2021 18:48 BANDAR KENT Aug 28, 2021 20:23
[2021-08-28] MEDS ORDERED: HOLD METFORMIN - RECEIVED CONTRAST 20 ML VIAL IV SCH (19:15)
[2021-08-28] MEDS ORDERED: NS IV 1000 ML 1,000 ML IV SCH (19:15)
[2021-08-28] MEDS ORDERED: MAGNESIUM 1 GM/100 ML IVPB 100 ML IV ONE (19:15)
[2021-08-28] MEDS ORDERED: IOHEXOL 350 MG/ML 100 ML (OMNIPAQUE 350) VIAL IV ONE (19:15)
[2021-08-28] MEDS ORDERED: NS 100 ML (IVPB) BAG IV ONE (19:15)
--- NOTE | 2021-08-28 20:13 | Diagnostic Imaging Report ---
PROCEDURE: CT chest, abdomen, and pelvis with contrast. TECHNIQUE: Multiple contiguous axial images were obtained through the chest, abdomen, and pelvis after the administration of intravenous contrast. Auto Exposure Controls were utilized during the CT exam to meet ALARA standards for radiation dose reduction. INDICATION: Chest pain. Abnormal chest radiograph. COMPARISON: Chest radiograph from earlier the same day. FINDINGS: CT CHEST: Heart size is within normal limits. There is moderate calcified coronary atherosclerosis. There is no large pericardial effusion. Borderline prominent right paratracheal lymph node measures 1.9 x 0.9 cm. No abnormal mediastinal, hilar or axillary adenopathy is seen on either side. Lungs are clear. There is no focal consolidation, large effusion or pneumothorax. No suspicious pulmonary nodule or mass is seen. Osseous structures show no acute abnormality. CT ABDOMEN: There are a few scattered colonic diverticula, but no CT evidence of acute diverticulitis. Normal appendix cannot be adequately identified, but there is no pericecal inflammation. Small bowel loops are nondistended. The kidneys, adrenal glands, spleen, pancreas and liver have a normal CT appearance. There is no loculated fluid collection, free fluid or free air within the abdomen. No abnormal mesenteric or retroperitoneal adenopathy is seen. Osseous structures show no acute abnormality. CT PELVIS: There appears to be patent pseudoaneurysm arising from the proximal left superficial femoral artery. It measures 1.5 cm in diameter. There is mild stranding of the surrounding subcutaneous fat. Urinary bladder is grossly unremarkable. There is no loculated fluid collection, free fluid or free air within the pelvis. No abnormal adenopathy is seen. Osseous structures show no acute abnormality. IMPRESSION: 1. No acute abnormality seen within the chest, abdomen or pelvis. 2. Probable patent pseudoaneurysm in the left inguinal region. Correlation with recent arterial access is recommended. This could be further assessed with focused Doppler evaluation. 3. Borderline prominent paratracheal lymph node of uncertain significance or etiology. This could be followed to ensure stability. Dictated by: Dictated on workstation # [id number]
[2021-08-28 22:12] VITALS: BP 194/107
[2021-08-28] MEDS ORDERED: NITROGLYCERIN 0.4 MG SL TABS BTL 25'S SL PRN (22:15)
[2021-08-28] MEDS ORDERED: ANTACID SUSP 30 ML UDC (MYLANTA) PO PRN (22:15)
[2021-08-28] MEDS ORDERED: traZODone 50 MG (DESYREL) TAB PO PRN (22:15)
[2021-08-28] MEDS ORDERED: HYDROcodone/APAP 5 MG/325 MG (LORTAB) TAB PO PRN (22:15)
[2021-08-28] MEDS ORDERED: ACETAMINOPHEN 500 MG TAB (TYLENOL) PO PRN (22:15)
[2021-08-28] MEDS ORDERED: morphine INJ 4 MG/ML 1 ML (VIAL/SYRINGE) IV PRN (22:15)
[2021-08-28] MEDS ORDERED: ONDANSETRON 4 MG/2 ML (SDV) Z0FRAN IVP PRN (22:15)
[2021-08-28] MEDS ORDERED: ALPRAZolam 0.5 MG (XANAX) TAB PO PRN (22:15)
[2021-08-28 22:20] VITALS: BP 177/95
[2021-08-28 22:36] VITALS: BP 148/90
[2021-08-28 22:51] VITALS: BP 177/93
[2021-08-28] MEDS ORDERED: RT-ALBUTEROL SULF 2.5 MG/3 ML PRE-MIX VIAL INH PRN (23:00)
[2021-08-28 23:30] VITALS: BP 175/85
[2021-08-29 00:12] VITALS: BP 146/82
[2021-08-29 03:20] VITALS: BP 150/82
[2021-08-29 05:14] LABS: BASOPHILS # (AUTO) 0.1 10^3/uL (0.0-0.1); BASOPHILS % (AUTO) 2 % (0-10); EOSINOPHILS # (AUTO) 0.7 10^3/uL (0.0-0.3); EOSINOPHILS % (AUTO) 8 % (0-10); HEMATOCRIT 40 % (40-54); LYMPHOCYTES # (AUTO) 2.8 10^3/uL (1.0-4.0); LYMPHOCYTES % (AUTO) 32 % (12-44); MEAN CORPUSCULAR HEMOGLOBIN 30 pg (25-34); MEAN CORPUSCULAR HGB CONC 35 g/dL (32-36); MEAN CORPUSCULAR VOLUME 87 fL (80-99); MEAN PLATELET VOLUME 8.6 fL (9.0-12.2); MONOCYTES # (AUTO) 0.8 10^3/uL (0.0-1.0); MONOCYTES % (AUTO) 9 % (0-12); NEUTROPHILS # (AUTO) 4.4 10^3/uL (1.8-7.8); NEUTROPHILS % (AUTO) 49 % (42-75); PLATELET COUNT 305 10^3/uL (130-400); WHITE BLOOD COUNT 8.8 10^3/uL (4.3-11.0)
[2021-08-29 05:22] LABS: CHLORIDE 105 MMOL/L (98-107); SODIUM 136 MMOL/L (135-145)
[2021-08-29 05:23] LABS: CALCIUM 9.3 MG/DL (8.5-10.1)
[2021-08-29 05:24] LABS: TRIGLYCERIDES 316 MG/DL (<150); VLDL CHOLESTEROL 63 MG/DL (5-40)
[2021-08-29 05:25] LABS: GLUCOSE 185 MG/DL (70-105)
[2021-08-29 05:26] LABS: CARBON DIOXIDE 20 MMOL/L (21-32)
[2021-08-29 05:28] LABS: CREATININE SERUM 0.92 MG/DL (0.60-1.30); GFR ESTIMATED 84
[2021-08-29 05:29] LABS: BUN/CREATININE RATIO 14; CHOLESTEROL 171 MG/DL (< 200)
[2021-08-29 05:30] LABS: HDL CHOLESTEROL 27 MG/DL (40-60)
[2021-08-29] MEDS: inSUlin ASPART (NovoLOG) 1 UNIT/0.01 ML (CHARGE PER UNIT) SC SCH ×3 (06:07→12:03)
--- NOTE | 2021-08-29 06:41 | Diagnostic Imaging Report ---
Reason for examination: Chest pain. Upright AP portable chest was obtained and compared to 02/06/2013. Heart size is within normal limits. No mediastinal widening. Lungs are clear. No effusion or pneumothorax. No pulmonary edema. IMPRESSION: 1. No acute findings in the chest. Dictated by: Dictated on workstation # [id number]
[2021-08-29 08:00] VITALS: BP 167/84
[2021-08-29] MEDS ORDERED: ASPIRIN E.C. 81 MG (ECOTRIN) TAB PO SCH (09:00)
[2021-08-29] MEDS ORDERED: meTOprolol SUCCINATE 100 MG (TOPROL XL) TAB PO SCH (09:00)
[2021-08-29] MEDS ORDERED: CLOPIDOGREL 75 MG (PLAVIX) TABLET PO SCH (09:00)
--- NOTE | 2021-08-29 10:38 | Occupational Therapy Eval ---
OT Evaluation-General/PLF Medical Diagnosis Admission Date Aug 28, 2021 at 21:00 Medical Diagnosis: CP r/o ACS Onset Date: Aug 28, 2021 Therapy Diagnosis Therapy Diagnosis: n/a Height/Weight Height (Feet): 6 Height (Inches): 1.00 Weight (Pounds): 300 Weight (Ounces): 0.0 Precautions Precautions/Isolations: Standard Precautions Referral Physician: Madelyn Referral Reason: Evaluation/Treatment Medical History Additional Medical History ED due to chest discomfort, SOB and extreme weakness. Stent placed last Tues. Current History COVID-19, CAD, HTN, chronic back pain, skin cancer Social History Home: Single Level Entry Into Home: Level Entry ADL-Prior Level of Function SCALE: Activities may be completed with or without assistive devices. 2-Mcqbixvybq-iaiabpn completes the activity by him/herself with no assistance from a helper. 5-Set-up or Clean-up Assistance-helper sets up or cleans up; patient completes activity. Clayton assists only prior to or following the activity. 4-Supervision or Touching Assistance-helper provides verbal cues and/or touching/steadying and/or contact guard assistance as patient completes activity. Assistance may be provided throughout the activity or intermittently. 3-Partial/Moderate Assistance-helper does LESS THAN HALF the effort. Clayton lifts, holds or supports trunk or limbs, but provides less than half the effort. 2-Substantial/Maximal Assistance-helper does MORE THAN HALF the effort. Clayton lifts or holds trunk or limbs and provides more than half the effort. 0-Omilcvdqt-ggvzfa does ALL the effort. Patient does none of the effort to complete the activity. Or, the assistance of 2 or more helpers is required for the patient to complete the activity. If activity was not attempted, code reason: 7-Patient Refused. 9-Not Applicable-not attempted and the patient did not perform the activity before the current illness, exacerbation or injury. 10-Not Attempted due to Environmental Limitations-(lack of equipment, weather restraints, etc.). 88-Not Attempted due to Medical Conditions or Safety Concerns. ADL PLOF Comments Pt reports IND with ADLs and functional mobility, using cane occasionally. Self Care: Independent Functional Cognition: Independent DME/Equipment: Tub/Shower OT Current Status Subjective Pt laying in bed, states he would like to get some rest as he didn't sleep well last night. Agreeable to OT evaluation/tx. Mental Status/Objective Patient Orientation: Person, Place, Time, Situation Current Glasses/Contacts: Yes Hand Dominance: Right Upper Extremity ROM WFL, BUE shoulder flexion to approx 160 degrees Upper Extremity Coordination WFL Upper Extremity Sensation pt denies any tingling/numbness at this time. Upper Extremity Strength grossly 4/5 ADL-Treatment Eating (QC): 6 (per pt report.) Toileting Hygiene (QC): 6 (Pt reports he is independent with clothing management and hygiene.) Other Treatments Pt laying in bed, transferred supine to sit EOB independently, then stood and performed functional mobility to his door and back to his bed, no AD, independently. He declined needing to toilet at this time, as he has been toileting independently. He also reports walking in the halls earlier with dr, independently. Pt indicates he is at his PLOF, independent with ADLs and functional mobility, and does not wish to have further OT services at this time. Pt transferred back to bed and supine independently. Post tx, pt in bed, call light in reach and all needs met. Education OT Patient Education: Correct positioning, Modified ADL techniques, Progress toward Goal/Update tx plan, Purpose of tx/functional activities Teaching Recipient: Patient Teaching Methods: Discussion Response to Teaching: Verbalize Understanding OT Nursing Home Goals Nursing Home Goals 1=Demonstrate adherence to instructed precautions during ADL tasks. 2=Patient will verbalize/demonstrate understanding of assistive devices/modifica tions for ADL. 3=Patient will improve strength/tolerance for activity to enable patient to perform ADL's. OT Education/Plan Problem List/Assessment Assessment: No Skilled OT Needs ID'd No skilled OT services indicated at this time as pt is at PLOF and independent with ADLs and functional mobility. Discharge Recommendations Plan/Recommendations: Discharge/Goals Met Treatment Plan/Plan of Care Treatment,Training & Education: Yes Patient would benefit from OT for education, treatment and training to promote independence in ADL's, mobility, safety and/or upper extremity function for ADL's. Plan of Care: ADL Retraining, Functional Mobility, UE Funct Exercise/Act Treatment Duration: Aug 29, 2021 Frequency: 1 time per week (eval only) Time/GCodes Start Time: 10:00 Stop Time: 10:10 Total Time Billed (hr/min): 10 Billed Treatment Time 1, RANDY GONZALEZ OT Aug 29, 2021 10:37
--- NOTE | 2021-08-29 11:11 | Consultation-Cardiology ---
HPI-Cardiology Cardiology Consultation Date of Consultation 08/29/21 Date of Admission Time Seen by Provider: 11:11 Indication: Chest pain HPI 60 years old gentleman with a history of coronary artery disease, had a recent stent to the circumflex artery, has been having generalized fatigue and shortness of breath and loss of energy since he had COVID-19 infection about 4 months ago. Yesterday, he started to have more fatigue and shortness of breath, felt extremely tired and had no energy and short of breath, came into the emergency room, work-up has been negative but he continued to be concerned about his extreme fatigue and loss of energy. He has been having insomnia and did not sleep well the night before his admission. On my evaluation he was feeling better. Denied any chest pain, his oxygen saturation was normal. I placed the pulse ox monitor and walked with him across the whole for 6 minutes walk and he continued to have oxygen saturation over 92%. Heart rate continue to be stable. Did not have any chest pain. Home Medications & Allergies Allergies: Coded Allergies: Dajcgkl-Nwh-Why Reductase Inhibitor (Verified Allergy, Unknown, caused liver issues, 03/13/16) fluticasone (Unverified Allergy, Unknown, 08/08/15) Uncoded Allergies: PCN (Allergy, Unknown, 02/06/13) Home Medication List Reviewed: Yes ONP-Itvkin-Dsnqwe Hx Patient Social History Marital Status: Employed/Student: employed Smoking Status: Never a Smoker Have you traveled recently?: No Alcohol Use?: No Immunizations Up To Date Tetanus Booster (TDap): More than 5yrs Date of Pneumonia Vaccine: Feb 08, 2013 Date of Influenza Vaccine: Sep 08, 2012 Past Medical History Discussed below Family Medical History Significant Family History: Hypertension Family Medical Hx Noncontributory Review of Systems-General Review of Systems Constitutional: see HPI, malaise, weakness EENTM: no symptoms reported Respiratory: see HPI, cough, dyspnea on exertion; No hemoptysis, No orthopnea, No phlegm, No short of breath, No stridor, No wheezing, No other Cardiovascular: see HPI, chest pain; No edema, No Hx of Intervention, No palpitations, No syncope, No vascular heart diseas, No other Gastrointestinal: no symptoms reported, see HPI Genitourinary: no symptoms reported, see HPI Musculoskeletal: no symptoms reported, see HPI Skin: no symptoms reported, see HPI Psychiatric/Neurological: No Symptoms Reported, See HPI Reviewed Test Results Reviewed Test Results Lab Laboratory Tests Test 08/28/21 15:40 08/28/21 16:10 08/28/21 17:04 08/28/21 18:22 Range/Units Glucometer 191 H 70-110 MG/DL White Blood Count 7.8 4.3-11.0 10^3/uL Red Blood Count 4.92 4.30-5.52 10^6/uL Hemoglobin 14.9 13.3-17.7 g/dL Hematocrit 43 40-54 % Mean Corpuscular Volume 86 80-99 fL Mean Corpuscular Hemoglobin 30 25-34 pg Mean Corpuscular Hemoglobin Concent 35 32-36 g/dL Red Cell Distribution Width 12.7 10.0-14.5 % Platelet Count 320 130-400 10^3/uL Mean Platelet Volume 8.7 L 9.0-12.2 fL Immature Granulocyte % (Auto) 0 % Neutrophils (%) (Auto) 53 42-75 % Lymphocytes (%) (Auto) 30 12-44 % Monocytes (%) (Auto) 8 0-12 % Eosinophils (%) (Auto) 7 0-10 % Basophils (%) (Auto) 2 0-10 % Neutrophils # (Auto) 4.1 1.8-7.8 10^3/uL Lymphocytes # (Auto) 2.3 1.0-4.0 10^3/uL Monocytes # (Auto) 0.6 0.0-1.0 10^3/uL Eosinophils # (Auto) 0.6 H 0.0-0.3 10^3/uL Basophils # (Auto) 0.1 0.0-0.1 10^3/uL Immature Granulocyte # (Auto) 0.0 0.0-0.1 10^3/uL Prothrombin Time 14.1 12.2-14.7 SEC INR Comment 1.1 0.8-1.4 Activated Partial Thromboplast Time 28 24-35 SEC D-Dimer 0.45 0.00-0.49 UG/ML Sodium Level 137 135-145 MMOL/L Potassium Level 4.4 3.6-5.0 MMOL/L Chloride Level 104 98-107 MMOL/L Carbon Dioxide Level 21 21-32 MMOL/L Anion Gap 12 5-14 MMOL/L Blood Urea Nitrogen 15 7-18 MG/DL Creatinine 0.98 0.60-1.30 MG/DL Estimat Glomerular Filtration Rate 78 BUN/Creatinine Ratio 15 Glucose Level 204 H 70-105 MG/DL Calcium Level 9.7 8.5-10.1 MG/DL Corrected Calcium 9.7 8.5-10.1 MG/DL Magnesium Level 1.5 L 1.6-2.4 MG/DL Total Bilirubin 0.6 0.1-1.0 MG/DL Aspartate Amino Transf (AST/SGOT) 76 H 5-34 U/L Alanine Aminotransferase (ALT/SGPT) 45 0-55 U/L Alkaline Phosphatase 60 40-136 U/L Myoglobin 62.3 10.0-92.0 NG/ML Troponin I 0.107 H < 0.028 <0.028 NG/ML B-Type Natriuretic Peptide 19.7 <100.0 PG/ML Total Protein 6.9 6.4-8.2 GM/DL Albumin 4.0 3.2-4.5 GM/DL TSH [place] Testing 1.77 0.35-4.94 UIU/ML Urine Color YELLOW Urine Clarity CLEAR Urine pH 6.0 5-9 Urine Specific [place] 1.025 H 1.016-1.022 Urine Protein TRACE H NEGATIVE Urine Glucose (UA) TRACE H NEGATIVE Urine Ketones NEGATIVE NEGATIVE Urine Nitrite NEGATIVE NEGATIVE Urine Bilirubin NEGATIVE NEGATIVE Urine Urobilinogen 0.2 < = 1.0 MG/DL Urine Leukocyte Esterase NEGATIVE NEGATIVE Urine RBC (Auto) NEGATIVE NEGATIVE Urine RBC NONE /HPF Urine WBC NONE /HPF Urine Crystals PRESENT H /LPF Urine Amorphous Sediment RARE ALESHA URATES H /LPF Urine Bacteria NEGATIVE /HPF Urine Casts NONE /LPF Urine Mucus NEGATIVE /LPF Urine Culture Indicated NO Test 08/28/21 19:32 08/29/21 05:05 Range/Units Troponin I < 0.028 < 0.028 <0.028 NG/ML White Blood Count 8.8 4.3-11.0 10^3/uL Red Blood Count 4.62 4.30-5.52 10^6/uL Hemoglobin 14.0 13.3-17.7 g/dL Hematocrit 40 40-54 % Mean Corpuscular Volume 87 80-99 fL Mean Corpuscular Hemoglobin 30 25-34 pg Mean Corpuscular Hemoglobin Concent 35 32-36 g/dL Red Cell Distribution Width 12.6 10.0-14.5 % Platelet Count 305 130-400 10^3/uL Mean Platelet Volume 8.6 L 9.0-12.2 fL Immature Granulocyte % (Auto) 0 % Neutrophils (%) (Auto) 49 42-75 % Lymphocytes (%) (Auto) 32 12-44 % Monocytes (%) (Auto) 9 0-12 % Eosinophils (%) (Auto) 8 0-10 % Basophils (%) (Auto) 2 0-10 % Neutrophils # (Auto) 4.4 1.8-7.8 10^3/uL Lymphocytes # (Auto) 2.8 1.0-4.0 10^3/uL Monocytes # (Auto) 0.8 0.0-1.0 10^3/uL Eosinophils # (Auto) 0.7 H 0.0-0.3 10^3/uL Basophils # (Auto) 0.1 0.0-0.1 10^3/uL Immature Granulocyte # (Auto) 0.0 0.0-0.1 10^3/uL Sodium Level 136 135-145 MMOL/L Potassium Level 4.0 3.6-5.0 MMOL/L Chloride Level 105 98-107 MMOL/L Carbon Dioxide Level 20 L 21-32 MMOL/L Anion Gap 11 5-14 MMOL/L Blood Urea Nitrogen 13 7-18 MG/DL Creatinine 0.92 0.60-1.30 MG/DL Estimat Glomerular Filtration Rate 84 BUN/Creatinine Ratio 14 Glucose Level 185 H 70-105 MG/DL Calcium Level 9.3 8.5-10.1 MG/DL Triglycerides Level 316 H <150 MG/DL Cholesterol Level 171 < 200 MG/DL LDL Cholesterol Direct 107 1-129 MG/DL VLDL Cholesterol 63 H 5-40 MG/DL HDL Cholesterol 27 L 40-60 MG/DL Physical Exam Physical Exam Vital Signs Vital Signs - First Documented 08/28/21 08/28/21 08/28/21 08/29/21 15:37 21:38 22:51 02:03 Temp 36.7 Pulse 70 Resp 18 B/P (MAP) 177/93 (121) Pulse Ox 98 O2 Delivery Room Air O2 Flow Rate 30.00 FiO2 21 Capillary Refill : Less Than 3 Seconds Height, Weight, BMI Height: 6'1.00" Weight: 300lbs. 0.0oz. [id number]; 38.25 BMI Method:Stated General Appearance: WD/WN, Mild Distress, Obese Eyes: Bilateral Eye Normal Inspection, Bilateral Eye PERRL, Bilateral Eye EOMI HEENT: PERRL/EOMI, Normal ENT Inspection Neck: Normal Inspection; No JVD Respiratory: Lungs Clear, Normal Breath Sounds, No Accessory Muscle Use Cardiovascular: Regular Rate, Rhythm, No Edema, No Murmur Gastrointestinal: Non Tender, Soft; No Distended Back: Normal Inspection, No CVA Tenderness, No Vertebral Tenderness Extremity: Normal Inspection, Non Tender, No Calf Tenderness Neurologic/Psychiatric: Alert, Oriented x3, No Motor/Sensory Deficits, 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 Bone on August 19, 2021 showing 80% distal stenosis in the circumflex artery underwent Machelle 2.5 x 12 mm stent without any complication, the rest of his coronary system has mild disease. Continue to monitor Chest pain, reporting improvement, cardiac enzymes and EKG did not show any a cute abnormality, patient was noted to have 1 abnormal troponin level out of 3. Probably lab error. I reassured him at this time. Probably small vessel disease. Continue with conservative management Shortness of breath, generalized fatigue and loss of energy, feeling extremely tired, has underlying COPD and sleep apnea, using CPAP machine. After further investigation it appeared that the night prior to his admission patient did not sleep well and has been having insomnia and did not use his CPAP machine the full night. His symptoms could be related to his underlying sleep apnea. 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 Reassured him at this time. COVID-19 infection occurred in April 2021, he continued to have generalized fati serafin and shortness of breath and loss of energy since then. No improvement was reported. Managed by primary care physician Hypertension, restart home medication monitor blood pressure Hyperlipidemia, intolerant to statin with extreme muscle ache and weakness Diabetes mellitus, followed and managed by primary care physician Obesity, BMI 38, we discussed weight loss. Okay for discharge from cardiology standpoint Clinical Quality Measures AMI/AHF: ASA po Prior to arrival: NIKOLAS Starks MD Aug 29, 2021 11:11
--- NOTE | 2021-08-29 11:29 | Short Stay Summary-Hospitalist ---
TAMARA HAGAN 08/29/21 1129: History of Present Illness HPI/Chief Complaint CC: Chest pain, arm and leg numbness, SOB, weak HPI: 60 yo male with hx COVID, CAD, colon cancer, skin cancer, HTN, HLD, gout, T2DM, and MIKE presented to the ER with chest pain, arm and leg numbness, and generalized weakness that began that day. He had a stent placement on 08/19 for stenosis in his circumflex artery. Pt has had lingering sx from "long-haul COVID" such as SOB, muscle aches, brain fog, and episodes of sweating. EKG showed sinus rhythm with nonspecific T wave abnormalities in lateral leads. CXR showed a density near his spine, CT was ordered. Chest/Abdominal/Pelvis CT showed a patent pseudoaneurysm in the L inguinal region and a prominent paratracheal LN. Pt had slight elevation of troponin after intake, but two repeat troponin measures were WNL, giving the impression that the first measure was in error. Pt was seen by cardiology and PT. He walked down the hallway and back to observe his pulse and oxygen status. O2 never dropped below 92%. Pt is being discharged on ASA, nitroglycerin PRN, clopidogrel, and metoprolol. His chest pain and SOB has improved. Source: patient, RN/MD, RN notes reviewed Exam Limitations: no limitations Date Seen 08/29/21 Time Seen by a Provider: 11:00 Attending Physician Mary Ann Beaulieu DO 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 Patients Allergies have been reviewed. Allergies Allergies Coded Allergies Nyjxebe-Zto-Nem Reductase Inhibitor (Verified Allergy, Unknown, caused liver issues, 03/13/16) fluticasone (Unverified Allergy, Unknown, 08/08/15) Uncoded Allergies PCN ( Allergy, Unknown, 02/06/13) Past Medical/Social/Family Hx Patient Social History Marrital Status: Employed/Student: employed Tobacco Use?: No Smoking Status: Never a Smoker Smokeless Tobacco Frequency: Never a User Use of E-Cig and/or Vaping dev: No Substance use?: No Alcohol Use?: No Pt stated abuse/neglect: No Immunizations Up To Date Influenza Vaccine Up-to-Date: No; Not Current Tetanus Booster (TDap): Unknown Hepatitis A: Yes Hepatitis B: Yes TB Skin Test: None Date of Pneumonia Vaccine: Feb 08, 2013 Current Status Advance Directives: No Communicates: Verbally Primary Language: Indonesian Preferred Spoken Language: Indonesian Is interpretation needed?: No Sensory deficits: Vision impairment Implanted or Applied Medical D: Stents Past Medical History PMH: colon cancer (removed 5 years ago); skin cancer (removed from face); HLD, HTN, gout, long-haul COVID, T2DM, COPD, MIKE, CAD Family Medical History Family Hx: FH: mom had colon cancer; dad had colon cancer, heart attack; no children Review of Systems Constitutional: malaise, weakness Respiratory: cough (reports congestion from allergies), short of breath (at rest) Cardiovascular: chest pain Gastrointestinal: constipation Psychiatric/Neurological: Numbness (arms/legs), Weakness (generalized) Physical Exam Physical Exam Vital Signs Vital Signs - First Documented 08/28/21 08/28/21 08/28/21 08/29/21 15:37 21:38 22:51 02:03 Temp 36.7 Pulse 70 Resp 18 B/P (MAP) 177/93 (121) Pulse Ox 98 O2 Delivery Room Air O2 Flow Rate 30.00 FiO2 21 Capillary Refill : Less Than 3 Seconds Height, Weight, BMI Height: 6'1.00" Weight: 300lbs. 0.0oz. [id number]; 38.25 BMI Method:Stated General Appearance: WD/WN, Mild Distress, Obese Eyes: Bilateral Eye Normal Inspection, Bilateral Eye PERRL, Bilateral Eye EOMI HEENT: PERRL/EOMI, Normal ENT Inspection Neck: Normal Inspection; No JVD Respiratory: Lungs Clear, Normal Breath Sounds, No Accessory Muscle Use Cardiovascular: Regular Rate, Rhythm, No Edema, No Murmur Gastrointestinal: Non Tender, Soft; No Distended Back: Normal Inspection, No CVA Tenderness, No Vertebral Tenderness Extremity: Normal Inspection, Non Tender, No Calf Tenderness Neurologic/Psychiatric: Alert, Oriented x3, No Motor/Sensory Deficits, 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 Short Stay Diagnosis Discharge Diagnosis-Short Stay Admission Diagnosis Assessment: Chest Pain CAD SOB Weakness/fatigue/insomnia Long-haul COVID HTN HLD T2DM Morbid obesity Gout- UA crystals Enlarged paratracheal LN Final Discharge Diagnosis Assessment: Chest Pain CAD SOB Weakness/fatigue/insomnia Long-haul COVID HTN HLD T2DM Morbid obesity Gout- UA crystals Enlarged paratracheal LN Conclusion Plan Plan: Continue clogpidogrel to prevent plt agg Continue metoprolol, adjust if bp remains uncontrolled Continue ASA daily and nitroglycerin PRN Consult pulmonology regarding SOB and fatigue Consider metformin/sliding scale insulin for hyperglycemia control Wear CPAP each night Continue to monitor HLD; pt can't tolerate statins Consider starting allopurinol F/U imaging on enlarged LN near trachea Clinical Quality Measures AMI/AHF: ASA po Prior to arrival: Yina ANNE BEAULIEUHelene COSBY 08/29/212114: History of Present Illness HPI/Chief Complaint CC: 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 He was deemed ready for observation with cardiology consultation, we will have PT and OT work with him and will set up cardiac or pulmonary rehab due to post-covid syndrome. He may be a candidate for inpatient rehab, we will evaluate his therapy notes. Source: patient, RN notes reviewed Exam Limitations: no limitations Past Medical/Social/Family Hx Patient Social History Marrital Status: Employed/Student: retired Smoking Status: Former Smoker Review of Systems Constitutional: see HPI, malaise, weakness EENTM: no symptoms reported Respiratory: cough (reports congestion from allergies), short of breath (at rest) Cardiovascular: chest pain Gastrointestinal: constipation Genitourinary: no symptoms reported Musculoskeletal: no symptoms reported Skin: no symptoms reported Psychiatric/Neurological: No Symptoms Reported All Other Systems Reviewed Negative Unless Noted: Yes Physical Exam Physical Exam General Appearance: No Apparent Distress, WD/WN, Chronically ill, Obese Eyes: Bilateral Eye Normal Inspection, Bilateral Eye PERRL HEENT: PERRL/EOMI, Normal ENT Inspection, Pharynx Normal Neck: Full Range of Motion, Normal Inspection, Non Tender, Supple, Carotid Bruit Respiratory: Chest Non Tender, Lungs Clear, Normal Breath Sounds, No Accessory Muscle Use, No Respiratory Distress Cardiovascular: Regular Rate, Rhythm, No Edema, No Gallop, No JVD, No Murmur, Normal Peripheral Pulses Gastrointestinal: Normal Bowel Sounds, No Organomegaly, No Pulsatile Mass, Non Tender, Soft Back: Normal Inspection, No CVA Tenderness, No Vertebral Tenderness Extremity: Normal Capillary Refill, Normal Inspection, Normal Range of Motion, Non Tender, No Calf Tenderness, No Pedal Edema Neurologic/Psychiatric: Alert, Oriented x3, No Motor/Sensory Deficits, Normal Mood/Affect Skin: Normal Color, Warm/Dry Lymphatic: No Adenopathy Short Stay Diagnosis Discharge Diagnosis-Short Stay Admission Diagnosis Chest pain Final Discharge Diagnosis Chest pain w/o ACS Post covid weakness Diagnosis/Problems Diagnosis/Problems (1) Chest pain in adult Status: Acute Supervisory-Addendum Brief Verification & Attestation Participated in pt care: history, MDM, physical Personally performed: exam, history, MDM, supervision of care Care discussed with: Medical Student Procedures: n/a Results interpretation: Verified all documentation Verification and Attestation of Medical Student E/M Service A medical student performed and documented this service in my presence. I reviewed and verified all information documented by the medical student and made modifications to such information, when appropriate. I personally performed the physical exam and medical decision making. Mary Ann Beaulieu, Aug 29, 2021,21:13 TAMARA HAGAN Aug 29, 2021 11:29 MARY ANN BEAULIEU DO Aug 29, 2021 21:15
[2021-08-29 12:35] VITALS: BP 167/84
== END 2021-08-29 12:35 | disposition home or self-care (01) ==
LOC: EDUNIT# 15:32 → ER 15:34 → 4TH 21:00
PROVIDERS: ADMIT Internal Medicine; ATTEND Internal Medicine
DX: I25.10 Atherosclerotic heart disease of native coronary artery without angina pectoris (principal); I10 Essential (primary) hypertension; E11.9 Type 2 diabetes mellitus without complications; E78.5 Hyperlipidemia, unspecified; E66.01 Morbid (severe) obesity due to excess calories; G47.00 Insomnia, unspecified; M10.9 Gout, unspecified; G47.30 Sleep apnea, unspecified; K59.09 Other constipation; G89.29 Other chronic pain; M54.9 Dorsalgia, unspecified; R59.9 Enlarged lymph nodes, unspecified; R53.83 Other fatigue; F32.9 Major depressive disorder, single episode, unspecified; Z68.38 Body mass index [BMI] 38.0-38.9, adult; Z79.82 Long term (current) use of aspirin; Z79.891 Long term (current) use of opiate analgesic; Z79.84 Long term (current) use of oral hypoglycemic drugs; Z79.899 Other long term (current) drug therapy; Z79.02 Long term (current) use of antithrombotics/antiplatelets; Z85.828 Personal history of other malignant neoplasm of skin; Z85.038 Personal history of other malignant neoplasm of large intestine
CPT/HCPCS: 36415; 71045; 71260; 74177; 80048; 80053; 80061; 81000; 82947; 83735; 83874; 83880; 84443; 84484; 85025; 85379; 85610; 85730; 93005; 93041; 94660; 94760; 96361; 96365; G0378

== ENCOUNTER → 2021-08-28 | Outpatient (CLI) | payer OTHER ==
[~2021-08-28] MED LIST changes: +ACHD5005 PO; +ALPR0.5T7 PO; +ASCO500C17 PO; +ASPI-999 PO; +CLOP75TA28 PO; +CYCL10TA25 PO; +FEXO-46 PO; +METF-478 PO; +METO100T6 PO; +METO50TA7 PO; +MULT-1136 PO; -POTA99TA21 PO; +POTA99TA26 PO; +RT-ALBUINH IH; +VITA-246 PO; +ZINC50TA11 PO
--- NOTE | 2021-08-28 14:19 | Diagnostic Imaging Report ---
INDICATION: Dyspnea. Stent placement last week. Side effects from COVID. EXAMINATION: Two-view chest from 08/28/2021. FINDINGS: There is a nonspecific density superimposed upon the [id number] thoracic spine. This could represent endplate changes versus a nodule in the underlying lung. It is not seen on the frontal view. The remaining lungs are clear. No infiltrates or effusions. No pneumothorax. Heart and pulmonary vasculature are normal. There is no acute osseous abnormality. IMPRESSION: 1. Density superimposed upon the spine, nonspecific in nature. Nonemergent CT imaging could further evaluate and exclude a lung nodule. Dictated by: Dictated on workstation # [id number]
== END ==
LOC: RT 13:29 → RAD 14:15
PROVIDERS: ATTEND Nurse Practitioner Family
DX: R06.00 Dyspnea, unspecified (principal); Z95.5 Presence of coronary angioplasty implant and graft
CPT/HCPCS: 71046

== ENCOUNTER → 2021-09-23 | Outpatient (CLI) | payer OTHER | LOC: LABNPT 06:11 | PROVIDERS: ATTEND Nurse Practitioner Family | DX: Z53.9 Procedure and treatment not carried out, unspecified reason (principal) ==